=== PATIENT | female | born 2000 | race Caucasian/White ===

== ENCOUNTER 2024-08-21 05:45 | Inpatient (IN) | payer BC ==
[~2024-08-21] VITALS: Ht 157.5 cm; Wt 88.2 kg
[2024-08-21] VITALS (82 sets, daily range): BP systolic 95–183; BP diastolic 47–111; PULSE 58–98; TEMP 98.3–99.6
[~2024-08-21 05:45] MED LIST: PRENATAL TABLET PO
--- NOTE | 2024-08-21 05:50 | NUR ---
Presents to L&D per wheelchair with c/o contractions. Denies leaking of fluid or vaginal bleeding. Reports positive movement.
[2024-08-21] MEDS ORDERED: LR 1,000 ML IV SCH ×2 (06:15→07:30)
[2024-08-21] MEDS ORDERED: LR 1,000 ML IV PRN ×2 (06:15→22:30)
[2024-08-21 06:53] LABS: BASO % 0.2 % (0.0-2.0); EOS % 0.1 % (0.0-4.0); GRAN # 11.5 K/mm3 (1.4-6.5); GRAN % 85.4 % (42.2-75.2); HEMOGLOBIN 12.8 g/dl (12.5-16.0); LYMPH # 1.4 K/mm3 (1.2-3.4); LYMPH % 10.1 % (20.0-51.0); MEAN CELL VOLUME 89 fl (80.0-100.0); MEAN CORPUSCULAR HEMOGLOBIN 31 pg (27-31); MEAN CORPUSCULAR HGB CONC 35 g/dl (33.0-37.0); MEAN PLATELET VOLUME 11.7 fl (7.4-10.4); MONO # 0.5 K/mm3 (0.1-0.6); MONO % 3.8 % (1.7-9.3); PLATELET COUNT 267 K/mm3 (130-400); RED BLOOD COUNT 4.07 M/mm3 (4.10-5.30); REDCELL DISTRIBUTION WIDTH-CV 13.7 % (11.5-14.5)
[2024-08-21 06:55] LABS: HEMATOCRIT 36.4 % (37.0-47.0)
[2024-08-21] MEDS ORDERED: ROPivacaine PF 0.2% 200 ML IV ONE (06:55)
--- NOTE | 2024-08-21 07:16 | NUR ---
PT SITTING UP FOR EPIDURAL PLACEMENT FROM 0658 UNTIL REPOROSITIONED TO WEDGE LEFT AT 0711. REPOSITIONED TOCO AT 0714. 0707: SINGLE SHOT PER EFRAINCLAIMS AGENT RIGHT OF WAY 0711: REPOSITIONED TO [place]ED[place] LEFT. PT DENIES PAIN, STATES HER LEGS FEEL WARM. PT TOLERATED PROCEDURE VERY WELL. NO OTHER CONCERNS AT THIS TIME.
[2024-08-21 07:21] LABS: ALBUMIN 2.8 g/dL (3.5-5.0); ALKALINE PHOSPHATASE 194 U/L (40-150); ANION GAP 14 mmol/L (7-16); AST,SGOT 17 U/L (5-34); BILIRUBIN,TOTAL 0.4 mg/dL (0.2-1.2); BLOOD UREA NITROGEN 8 mg/dL (7-19); CALCIUM 9.8 mg/dL (8.4-10.2); CHLORIDE 107 mEq/L (98-107); CREATININE, serum 0.71 mg/dL (0.57-1.11); GLUCOSE 85 mg/dL (70-99); POTASSIUM 3.6 mEq/L (3.5-4.5); SODIUM 139 mEq/L (136-145); TOTAL PROTEIN 6.8 g/dl (6.2-8.1)
[2024-08-21 07:26] LABS: ALANINE AMINOTRANSFERASE < 6 U/L (0-55)
[2024-08-21] MEDS ORDERED: diphenhydrAMINE 25 MG CAP PO PRN (07:30)
[2024-08-21] MEDS ORDERED: LR 500 ML IV PRN (07:30)
[2024-08-21] MEDS ORDERED: diphenhydrAMINE 50 MG/ML 1 ML VIAL IV PRN (07:30)
[2024-08-21] MEDS ORDERED: ePHEDrine 50 MG/10 ML VIAL IV PRN (07:30)
[2024-08-21] MEDS ORDERED: Ondansetron 4 MG/2 ML VIAL IV PRN ×2 (07:30→22:30)
[2024-08-21] MEDS ORDERED: Naloxone 0.4 MG/ML VIAL IV PRN ×2 (07:30→22:30)
--- NOTE | 2024-08-21 09:43 | NUR ---
RN AT BEDSIDE FOR THE LAST 15 MINUTES, EFM US MONITOR SWITCHING BACK AND FORTH FROM MATERNAL HR AND HR. REPOSITIONED SEVERAL TIMES TO ENSURE SOLELY HR WOULD SILVER HOLLOWARE ASSEMBLER.
[2024-08-21] MEDS ORDERED: LR & Oxytocin 500 ML IV SCH (12:30)
--- NOTE | 2024-08-21 19:11 | NUR ---
DR. RAMOS AT NURSES DESK. VERBAL ORDERS TO DECREASE PITOCIN BY HALF DUE TO CONTRACTION PATTERN. THIS NURSE DECREASED PITOCIN TO 8MU
--- NOTE | 2024-08-21 19:20 | NUR ---
DR. RAMOS AT BEDSIDE. SVE 8. [facility] PLACED BY .
[2024-08-21] MEDS ORDERED: Chloroprocaine PF 3% (30 MG/ML) 20 ML VIAL ONE (20:42)
[2024-08-21] MEDS ORDERED: Methylergonovine 0.2 MG/ML 1 ML AMPUL ONE (20:45)
[2024-08-21] MEDS ORDERED: Phenylephrine 10 MG/ML VIAL ONE (20:52)
[2024-08-21] MEDS ORDERED: Oxytocin 10 UNITS/ML VIAL ONE (20:52)
[2024-08-21] MEDS ORDERED: traZODone 50 MG TAB PO PRN (21:00)
--- NOTE | 2024-08-21 21:00 | NUR ---
2037- AT BEDSIDE. SVE UNCHANGED. PATIENT EDUCATED BY PLAN OF CARE OPTIONS. 2041- PATIENT AGREES TO HAVE . PATIENT AND SPOUSE EDUCATED ON PLAN OF CARE. QUESTIONS INVITED AND ANSWERED. PATIENT PREPPED FOR . PITOCIN TURNED OFF. 2050- [facility] MONITOR REMOVED. 2099- PATIENT TRANSFERRED TO OR VIA HOSPITAL BED.
[2024-08-21] MEDS ORDERED: fentaNYL 50 MCG/ML 2 ML VIAL ONE (21:11)
[2024-08-21] MEDS ORDERED: Ondansetron 4 MG/2 ML VIAL ONE (21:11)
[2024-08-21] MEDS ORDERED: Ketorolac 30 MG/ML VIAL ONE (21:14)
[2024-08-21] MEDS ORDERED: dexAMETHasone 10 MG/ML VIAL ONE (21:29)
[2024-08-21] MEDS ORDERED: NS 10 ML IV ONE (21:29)
[2024-08-21] MEDS ORDERED: Labetalol 100 MG/20 ML Multi-Dose VIAL ONE (21:40)
[2024-08-21] MEDS ORDERED: Loratadine 10 MG TAB PO PRN (22:00)
[2024-08-21] MEDS ORDERED: NIFEdipine XL 30 MG TAB PO SCH (22:00)
[2024-08-21] MEDS ORDERED: Magnes Hydrox (MOM) 80 MG/ML 30 ML CUP PO PRN (22:00)
--- NOTE | 2024-08-21 22:02 | NUR ---
2201- DR. ZAMARRIPA NOTIFIED OF PATIENT HAVING ELEVATED BLOOD PRESSURES IN PACU AND RECEIVING 10MG LABETALOL IN OR AT 2144. TORB TO GIVE 20MG LABETALOL NOW. RECHECK BLOOD PRESSURE PER PROTOCOL AND GIVE 40MG LABETALOL IF BLOOD PRESSURE STILL ELEVATED ABOVE 160/110.
[2024-08-21] MEDS ORDERED: HYDROmorphone 0.5 MG/0.5 ML SYRINGE ONE (22:08)
[2024-08-21] MEDS ORDERED: Measles/Mumps/Rubella Virus Vaccine Live w Diluent 0.5 ML VIAL SQ SCH (22:30)
[2024-08-21] MEDS ORDERED: Tdap Vaccine 0.5 ML SYRINGE IM SCH (22:30)
[2024-08-21] MEDS ORDERED: Meperidine 50 MG/ML 1 ML VIAL IV PRN (22:30)
[2024-08-21] MEDS ORDERED: HYDROmorphone 0.5 MG/0.5 ML SYRINGE IV ONE ×2 (22:30)
[2024-08-21] MEDS ORDERED: Morphine 4 MG/ML VIAL IV PRN (22:30)
[2024-08-21] MEDS ORDERED: oxyCODONE/Acetaminophen 5-325 MG TAB PO PRN (22:30)
[2024-08-21] MEDS ORDERED: hydrALAZINE 20 MG/ML 1 ML VIAL IV PRN ×3 (22:45)
--- NOTE | 2024-08-21 23:03 | NUR ---
DR. RAMOS NOTIFIED OF PATIENT HAVING ELEVATED BLOOD PRESSURES AFTER 40MG LABETALOL PER PREVIOUS ORDERS. TORB TO GIVE 80MG LABETALOL NOW AND IF PATIENT CONTINUES TO HAVE ELEVATED BLOOD PRESSURE PLEASE CALL BACK WITH AN UPDATE AND CONTINUE TO FOLLOW HYPERTENSION PROTOCOL.
--- NOTE | 2024-08-21 23:37 | NUR ---
DR. RAMOS NOTIFIED OF PATIENT HAVING ELEVATED BLOOD PRESSURES AFTER 80MG LABETALOL PER LAST TORB ORDERS. RECEIVED TORB TO ADMINISTER HYDRALAZINE IV 10MG PER HYPERTENSION PROTOCOL AND CONTINUE PROTOCOL FOR MEDICAITON ADMINISTRATION. REQUESTED AN UPDATE IF BLOOD PRESSURE DOESN'T GET BELOW 160/110 WITH THE NEXT DOSES OF MEDICATION.
[2024-08-22] VITALS (14 sets, daily range): BP systolic 115–155; BP diastolic 63–93; PULSE 75–86; TEMP 97.6–98.9
--- NOTE | 2024-08-22 00:20 | NUR ---
PATIENT TRANSFERRED FROM PACU TO ROOM VIA BED. PLAN OF CARE EXPLAINED TO PATIENT AND SPOUSE. QUESTIONS INVITED AND ANSWERED.
--- NOTE | 2024-08-22 01:00 | NUR ---
DR. RAMOS UPDATED ON PATIENT'S BLOOD PRESSURE. PATIENT IS COMFORTABLE AND BLOOD PRESSURES HAVE STAYED WITHIN PARAMETERS WITH THE ONE DOSE OF HYDRALAZINE PER PREVIOUS TORB.
[2024-08-22] MEDS ORDERED: Ibuprofen 800 MG TAB PO SCH (03:53)
--- NOTE | 2024-08-22 05:01 | NUR ---
0445- PATIENT ABLE TO LIFT BILATERAL LOWER EXTREMITIES. PATIENT SITTING ON EDGE OF BED. EPIDURAL CATHETER REMOVED WITH TIP INTACT. PATIENT DENIES FEELING LIGHT HEADED. PATIENT AMBULATORY TO RESTROOM FOLLOWING DELIVERY. PERICARE PROVIDED. CLEAN HOSPITAL GOWN, UNDERWEAR AND PAD APPLIED. CHAVIRA CATHETER REMOVED. PATIENT AMBULATORY BACK TO BED. DENIES NEED FOR PAIN MEDICATION. PLAN OF CARE EXPLAINED TO PATIENT. QUESTIONS INVITED AND ANSWERED.
[2024-08-22] MEDS ORDERED: Sennosides/Docusate 8.6-50 MG TAB PO SCH (08:00)
--- NOTE | 2024-08-22 10:50 | NUR ---
Initial visit; Parents thanked Business Continuity Manager for offering congratulations and God's blessings for the of their son. Business Continuity Manager thanked family for choosing [facility].
[2024-08-23 07:45] VITALS: BP 119/75; PULSE 67; TEMP 98
[2024-08-23 08:00] VITALS: BP 114/66; PULSE 71; TEMP 98
[2024-08-23] MEDS ORDERED: MOTRIN 800800 MG/TAB PO (08:28)
[2024-08-23] MEDS ORDERED: PERCOCET 325 MG1 TA2 PO (08:29)
--- NOTE | 2024-08-23 15:07 | NUR ---
DISCHARGE TEACHING REVIEWED WITH PATIENT AND SIGNIFICANT OTHER. PATIENT VERBALIZES UNDERSTANDING. PATIENT OFF UNIT IN WHEELCHAIR WITH THIS RN AND SIGNIFICANT OTHER. PATIENT DISCHARGED HOME IN STABLE CONDITION.
== END 2024-08-23 15:07 | disposition home or self-care (01) | DRG 788 ==
LOC: LDRO 05:45 → LDR 06:05 → OB 23:30
PROVIDERS: Obstetrics & Gynecology; ADMIT Obstetrics & Gynecology
PROC: 10D00Z1 Extraction of Products of Conception, Low, Open Approach (ICD-10-PCS; principal; 2024-08-21)
PROC: 3E033VJ Introduction of Other Hormone into Peripheral Vein, Percutaneous Approach (ICD-10-PCS; 2024-08-21)
PROC: 10907ZC Drainage of Amniotic Fluid, Therapeutic from Products of Conception, Via Natural or Artificial Opening (ICD-10-PCS; 2024-08-21)
DX: O48.0 Post-term pregnancy (principal); O62.0 Primary inadequate contractions; Z3A.40 40 weeks gestation of pregnancy; Z37.0 Single live birth; R03.0 Elevated blood-pressure reading, without diagnosis of hypertension; O75.89 Other specified complications of labor and delivery; O32.4XX0 Maternal care for high head at term, not applicable or unspecified
CPT/HCPCS: A9284; J0360; J0665; J0690; J1100; J1171; J1885; J1920; J2210; J2371; J2401; J2405; J2590; J2795; J3010; J7120